=== PATIENT | female | born 2000 | race Caucasian/White ===

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

== ENCOUNTER 2020-01-21 21:22 | Emergency (ER) | payer OTHER ==
[2020-01-21 21:49] LABS: ABS Basophils 0.1 10^3/ul (0-0.2); ABS Eosinophils 0.5 10^3/ul (0-0.6); ABS Monocytes 0.6 10^3/ul (0-0.8); ABS Neutrophils 4.1 10^3/ul (1.5-7.7); Eosinophil % 5.5 %; Hematocrit 42 % (35-47); Hemoglobin 14.3 g/dL (12.0-16.0); Lymphocyte % 42.6 %; Mean Corpuscular HGB Conc 34 g/dL (31-36); Mean Corpuscular Hemoglobin 28 pg (27-31); Mean Corpuscular Volume 81 fL (80-97); Mean Platelet Volume 8.6 fL (7.4-10.4); Nucleated Red Blood Cells % 0.1; Platelet Count 319 10^3/uL (150-450); Red Blood Count 5.11 10^6 /uL (3.70-4.87); Red Cell Distribution Width 13 % (10-15); White Blood Count 9.3 10^3/uL (3.5-10.8)
--- NOTE | 2020-01-21 22:06 | ED ---
Shortness of Breath - HPI Summary HPI Summary: Patient is a 19 y/o F presenting to the ED for a chief complaint of shortness of breath and chest pain that began on 01/17/20 after returning home from [facility] on 01/13/20. 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 She describes the chest pain as a pressure sensation. The chest pain occasionally worsens with deep breaths and exertion. Patient denies fever. No alleviating factors are reported. She notes her symptoms are similar to a prior asthma exacerbation. PMHx is significant for panic disorder, allergies, and asthma for which she takes several medications. PSHx is significant for wisdom teeth removal. FMHx is significant for cardiac disease on paternal and maternal sides and DM on the maternal side. LNMP was 5 days ago. Allergies are denied. - History of Current Complaint Chief Complaint: EDShortnessOfBreath Time Seen by Provider: 01/21/20 21:56 Hx Obtained From: Patient Onset/Duration: Sudden Onset, Lasting Days - 4 days, Still Present Timing: Constant Current Severity: Moderate Dyspnea At: Rest Aggravating Factors: Deep Breaths, Other - Exertion Alleviating Factors: Nothing Associated Signs & Symptoms: Chest Pain Unrelated to Cough Related History: Similar Episode - Asthma exacerbation - Allergy/Home Medications Allergies/Adverse Reactions: Allergies Allergy/AdvReac Type Severity Reaction Status Date / Time No Known Allergies Allergy Verified 01/07/17 16:34 Home Medications: Home Medications Albuterol HFA INHALER* [Ventolin HFA Inhaler*] 01/07/17 [History] Albuterol Sulfate [Proventil Hfa] 01/07/17 [History] Control 01/07/17 [History] Cholecalciferol [Vitamin D] 01/07/17 [History] Iron W/ B12-Vit C-FA-Ifc [Ferrotrin] 01/07/17 [History] Montelukast Sodium TAB* [Singulair 10 MG TAB*] 10 mg PO BEDTIME 01/07/17 [ History Confirmed 01/07/17] [place]-3/Dha/Epa/Fish Oil [Fish Oil 1,000 mg Softgel] 01/07/17 [History Confirmed 01/07/17] predniSONE [Prednisone 20 MG TAB] 40 mg PO DAILY #10 tablet 01/21/20 [Rx] PMH/Surg Hx/FS Hx/Imm Hx Previously Healthy: Yes Respiratory History: Reports: Hx Asthma, Hx Seasonal Allergies Sensory History: Denies: Hx Legally Blind, Hx Deafness Opthamlomology History: Denies: Hx Legally Blind EENT History: Denies: Hx Deafness Psychiatric History: Reports: Hx Panic Disorder - Surgical History Surgical History: Yes Surgery Procedure, Year, and Place: [place] teeth Infectious Disease History: Yes Infectious Disease History: Reports: Traveled Outside the [place] in Last 30 Days - [place], returned 01/13/20 - Family History Known Family History: Positive: Cardiac Disease - Paternal and maternal, Diabetes - Maternal - Social History Occupation: Student Lives: With Family Alcohol Use: None Hx Substance Use: No Substance Use Type: Reports: None Hx Tobacco Use: No Smoking Status (MU): Never Smoked Tobacco Have You Smoked in the Last Year: No Review of Systems - ROS Summary Review of Systems Summary: Albuterol HFA INHALER* [Ventolin HFA Inhaler*] 01/07/17 [History] Albuterol Sulfate [Proventil Hfa] 01/07/17 [History] Control 01/07/17 [History] Cholecalciferol [Vitamin D] 01/07/17 [History] Iron W/ B12-Vit C-FA-Ifc [Ferrotrin] 01/07/17 [History] Montelukast Sodium TAB* [Singulair TAB*] 10 mg PO BEDTIME 01/07/17 [History Confirmed 01/07/17] [place]-3/Dha/Epa/Fish Oil [Fish Oil] 01/07/17 [History Confirmed 01/07/17] Negative: Fever Positive: Chest Pain Positive: Shortness Of Breath All Other Systems Reviewed And Are Negative: Yes Physical Exam - Summary Physical Exam Summary: General: Well-developed, Well-nourished Female. No acute distress. HEENT: Normocephalic, Atraumatic. Eyes: Conjuctiva normal, PERRL. Oropharynx: Clear, mucous membranes moist, (-) exudates. Neck: Soft, FROM, (-) lymphadenopathy, (-) thyromegaly, (-) JVD. Cardiovascular: Normal sinus rhythm, (-) murmur. Lungs: Clear to auscultation bilaterally (-) wheezes, (-) rales, (-) rhonchi. Decreased breath sounds bilaterally. Prolonged expiration. Abdomen: Soft, non-tender, non-distended, (-) organomegaly, normal bowel sounds. Back: (-) CVA tenderness Extremities: No edema. Skin: Warm, dry, (-) rash. Neuro: Alert and oriented x3, moves all extremities equally. No ataxia. No gait disturbance. No sensory deficit. Normal strength, normal sensation. Psychiatric: Mood normal, affect normal. Triage Information Reviewed: Yes Vital Signs On Initial Exam: Initial Vitals Temp Pulse Resp BP Pulse Ox 98.3 F 103 18 0/0 99 01/21/20 21:27 01/21/20 21:27 01/21/20 21:27 01/21/20 21:27 01/21/20 21:27 Vital Signs Reviewed: Yes Procedures - Sedation Patient Received Moderate/Deep Sedation with Procedure: No Diagnostics - Vital Signs Vital Signs Temp Pulse Resp BP Pulse Ox 01/21/20 21:27 98.3 F 103 18 0/0 99 - Laboratory Lab Results: Lab Results 01/21/20 Range/Units 21:38 WBC 9.3 (3.5-10.8) 10^3/uL RBC 5.11 H (3.70-4.87) 10^6 /uL Hgb 14.3 (12.0-16.0) g/dL Hct 42 (35-47) % MCV 81 (80-97) fL MCH 28 (27-31) pg MCHC 34 (31-36) g/dL RDW 13 (10-15) % Plt Count 319 (150-450) 10^3/uL MPV 8.6 (7.4-10.4) fL Neut % (Auto) 44.4 % Lymph % (Auto) 42.6 % Greer % (Auto) 6.8 % Eos % (Auto) 5.5 % Baso % (Auto) 0.7 % Absolute Neuts (auto) 4.1 (1.5-7.7) 10^3/ul Absolute Lymphs (auto) 4.0 (1.0-4.8) 10^3/ul Absolute Monos (auto) 0.6 (0-0.8) 10^3/ul Absolute Eos (auto) 0.5 (0-0.6) 10^3/ul Absolute Basos (auto) 0.1 (0-0.2) 10^3/ul Absolute Nucleated RBC 0.0 10^3/ul Nucleated RBC % 0.1 Result Diagrams: 01/21/20 21:38 01/21/20 21:38 Lab Statement: Any lab studies that have been ordered have been reviewed, and results considered in the medical decision making process. - Radiology Chest X-ray Radiology Interpretation Completed By: ED Physician Summary of Radiographic Findings: Chest X-ray IMPRESSION: No infiltrate. No pleural effusion. Reviewed and interpreted by Dr. Maier, pending official radiology report. - EKG 21:27 Cardiac Rate: NL - 94 BPM EKG Rhythm: Sinus Rhythm ST Segment: Normal Ectopy: None Summary of EKG Findings: EKG at 21:27 reveals normal sinus rhythm with rate of 94 BPM, no acute changes, no ischemic changes. This EKG was reviewed and interpreted by Dr. Maier. Re-Evaluation - Re-Evaluation First Eval Re-Evaluation Time: 22:29 Change: Improved Comment: At 22:29, patient is feeling improved after being given albuterol and prednisone. Second Eval Re-Evaluation Time: 23:05 Change: Worse Comment: At 23:05, patient was initially improved, but now complains of pain in her lower lungs with deep breaths. I will order another duo-nebulizer. Third Eval Re-Evaluation Time: 23:30 Change: Improved Comment: At 23:30, I discussed all results and her shortness of breath and chest pain has resolved. Discussed all symptoms that warrant return to the ED. Course/Dx - Course Course Of Treatment: 19-year-old female presents with 4 day history of chest tightness and shortness of breath. Patient returning from [facility] one week ago. She denies any fevers at any point in her illness. Denies any significant cough. This feels like a asthma exacerbation to her except for with a little bit more chest tightness. She has inhalers at home which she states she's been using. No other systemic symptoms. On physical exam she has decreased breath sounds bilaterally. Prolonged expiration with fair air exchange. Patient has improved symptoms after 2 DuoNeb times. Laboratories and x-ray unremarkable. Patient started on prednisone 40 mg daily for 5 days. Follow-up with PCP. Follow-up sooner for any worsening symptoms. In the ED course, patient was given Albuterol 1 neb INH and Prednisone 40 mg PO. - Diagnoses Provider Diagnoses: Asthma exacerbation Discharge ED - Sign-Out/Discharge Documenting (check all that apply): Patient Departure - Discharge - Discharge Plan Condition: Stable Disposition: HOME Prescriptions: predniSONE [Prednisone 20 MG TAB] 40 mg PO DAILY #10 tablet Patient Education Materials: Asthma (ED) Referrals: Eric Bell, NEWSPAPER CORRESPONDENT [Nurse Practitioner] - Additional Instructions: Please follow up with your primary care physician within three days. Please return to ED for any new or worsening symptoms. - Billing Disposition and Condition Condition: STABLE Disposition: Home - Attestation Statements Document Initiated by Robynibe: Yes Documenting Scribe: Afshan Caldwell Provider For Whom Charisse is Documenting (Include Credential): Clary Maier MD Scribe Attestation: Afshan Irving, scribed for Clary Maier MD on 01/22/20 at 0208. Scribe Documentation Reviewed: Yes Provider Attestation: The documentation as recorded by the Afshan mera accurately reflects the service I personally performed and the decisions made by Clary fu MD Status of Scribe Document: Viewed
[2020-01-21 22:07] LABS: ALT 31 U/L (7-52); AST 22 U/L (13-39); Albumin 4.4 g/dL (3.2-5.2); Albumin/Globulin Ratio 1.3 (1-3); Alkaline Phosphatase 75 U/L (34-104); Anion Gap 9 mmol/L (2-11); BUN/Creatinine Ratio 13.5 (8-20); Blood Urea Nitrogen 10 mg/dL (6-24); CO2 Carbon Dioxide 27 mmol/L (22-32); Calcium 9.8 mg/dL (8.6-10.3); Chloride 103 mmol/L (101-111); EGFR African American 121.1 (>60); EGFR Non-African American 100.1 (>60); Globulin 3.4 g/dL (2-4); Glucose 131 mg/dL (70-100); Potassium 3.5 mmol/L (3.5-5.0); Sodium 139 mmol/L (135-145); Total Protein 7.8 g/dL (6.4-8.9)
[2020-01-21] MEDS ORDERED: Albuterol/Ipratropium NEB.SOL* Albuterol 2.5 MG/Ipratropium 0.5 MG 3 ML INH ONE ×2 (22:07→23:07)
[2020-01-21 22:29] LABS: HCG Pregnancy < 0.60 mIU/mL
[2020-01-21] MEDS ORDERED: Albuterol/Ipratropium NEB.SOL* Albuterol 2.5 MG/Ipratropium 0.5 MG 3 ML ONE (23:08)
[2020-01-21 23:46] VITALS: BP 119/76
== END 2020-01-21 23:45 | disposition home or self-care (01) ==
LOC: ED 21:22
DX: J45.901 Unspecified asthma with (acute) exacerbation (principal); F41.0 Panic disorder [episodic paroxysmal anxiety]; Z79.899 Other long term (current) drug therapy
CPT/HCPCS: 36415; 71045; 80053; 84484; 84702; 85025; 85610; 93005; 99283; A9270-GY; J7512